=== PATIENT | male | born 1975 | race Caucasian/White ===

== ENCOUNTER 2019-01-04 12:35 | Inpatient (IN) | payer MEDICAID, OTHER ==
[~2019-01-04] VITALS: Ht 162.6 cm; Wt 76.0 kg
[2019-01-04 13:04] LABS: BASOPHILS % (AUTO) 0.9 % (0.0-2.0); EOSINOPHILS % (AUTO) 1.4 % (1.0-6.0); HEMATOCRIT 42.6 % (41-53); HEMOGLOBIN 14.5 g/dL (13.5-17.5); LYMPHOCYTES # (AUTO) 3.3 K/uL (1.0-4.8); LYMPHOCYTES % (AUTO) 38.1 % (22.0-44.0); MEAN CORPUSCULAR HEMOGLOBIN 31.2 pg (26.0-34.0); MEAN CORPUSCULAR HGB CONC 34.1 G/dL (31.0-37.0); MEAN CORPUSCULAR VOLUME 92 fL (80-100); MONOCYTES # (AUTO) 0.8 K/uL (0.1-1.0); MONOCYTES % (AUTO) 9.7 % (2.0-9.0); NEUTROPHILS # (AUTO) 4.3 K/uL (1.8-7.7); NEUTROPHILS % (AUTO) 49.9 % (40.0-70.0); PLATELET COUNT (AUTO) 217 K/uL (150-450); RED BLOOD CELL COUNT(AUTO) 4.65 MIL/uL (4.50-5.90); RED CELL DISTRIBUTION WIDTH 14.6 % (11.5-14.5)
[2019-01-04 13:12] LABS: ANION GAP 10 mmol/L (8-16); CALCIUM, TOTAL 9.6 mg/dL (8.8-10.5); CARBON DIOXIDE 26 mmol/L (22-29); CHLORIDE 100 mmol/L (98-107); CREATININE 1.12 mg/dL (0.60-1.30); GLOMERULAR FILTR. RATE CALC > 60 mL/min (>60); GLUCOSE,RANDOM 126 mg/dL (70-110); POTASSIUM 3.6 mmol/L (3.5-5.1); SODIUM SERUM 136 mmol/L (136-145); UREA NITROGEN, BLOOD 14 mg/dL (7-18)
[2019-01-04 13:18] LABS: ALANINE AMINOTRANSFERASE 103 U/L (12-78); ALBUMIN 4.4 g/dL (3.4-5.0); ALKALINE PHOSPHATASE 76 U/L (46-116); ASPARTATE AMINOTRANSFERASE 31 U/L (15-37); BILIRUBIN,TOTAL 0.4 mg/dL (0.1-1.0); TOTAL PROTEIN, SERUM 7.8 g/dL (6.4-8.2)
[2019-01-04] MEDS ORDERED: HALOPERIDOL 5 MG TABLET PO PRN (15:45)
[2019-01-04 16:11] LABS: AMPHET/METH SCREEN,URINE NEGATIVE (NEGATIVE); BARBITURATE SCREEN, URINE NEGATIVE (NEGATIVE); BENZODIAZEPINES SCREEN,URINE NEGATIVE (NEGATIVE); CANNABINOID SCREEN,URINE NEGATIVE (NEGATIVE); COCAINE SCREEN,URINE NEGATIVE (NEGATIVE); METHADONE SCREEN, URINE NEGATIVE (NEGATIVE); OPIATE SCREEN,URINE NEGATIVE (NEGATIVE)
[2019-01-04 16:13] LABS: PHENCYCLIDINE SCREEN,URINE NEGATIVE (NEGATIVE)
[2019-01-04 17:01] LABS: APPEARANCE,URINE CLEAR (CLEAR); BILIRUBIN,URINE NEGATIVE (NEGATIVE); GLUCOSE, URINE (UA) NEGATIVE (NEGATIVE); KETONES,URINE NEGATIVE (NEGATIVE); LEUKOCYTE ESTERASE ,URINE NEGATIVE (NEGATIVE); NITRATE,URINE NEGATIVE (NEGATIVE); OCCULT BLOOD,URINE NEGATIVE (NEGATIVE); PROTEIN,URINE NEGATIVE (NEGATIVE); UROBILINOGEN,URINE 0.2 mg/dL (<=1.0)
[2019-01-04] MEDS ORDERED: IBUPROFEN 400 MG TABLET PO PRN (21:15)
[2019-01-04] MEDS ORDERED: PETROLATUM,WHITE 28 GM JELLY TP PRN (21:15)
[2019-01-04] MEDS ORDERED: DOCUSATE SODIUM 100 MG CAPSULE PO PRN (21:15)
[2019-01-04] MEDS ORDERED: GuaiFENesin/D-METHORPHAN [SUGAR-FREE] 200-20MG/10 ML SYRUP UDCUP PO PRN (21:15)
[2019-01-04] MEDS ORDERED: ACETAMINOPHEN 325 MG TABLET PO PRN (21:15)
[2019-01-04] MEDS ORDERED: ONDANSETRON HCL 4 MG TABLET PO PRN (21:15)
[2019-01-04] MEDS ORDERED: MAGNESIUM HYDROXIDE SUSPENSION 30 ML UDCUP PO PRN (21:15)
[2019-01-04] MEDS ORDERED: LOPERAMIDE HCL 2 MG CAPSULE PO PRN (21:15)
[2019-01-04] MEDS ORDERED: CloNIDine HCL 0.1 MG TABLET PO PRN (21:15)
[2019-01-04] MEDS ORDERED: ALBUTEROL SULFATE HFA 90 MCG/PUFF 8 GM INHALER IH PRN (21:15)
[2019-01-04 21:23] VITALS: BP 123/84
[2019-01-04] MEDS: ACETAMINOPHEN 325 MG TABLET PO PRN (21:23)
[2019-01-04] MEDS: ZOLPIDEM TARTRATE 10 MG TABLET PO PRN (21:23)
[2019-01-05 06:59] LABS: BASOPHILS % (AUTO) 0.9 % (0.0-2.0); EOSINOPHILS % (AUTO) 2.6 % (1.0-6.0); HEMATOCRIT 40.2 % (41-53); HEMOGLOBIN 13.9 g/dL (13.5-17.5); LYMPHOCYTES # (AUTO) 2.6 K/uL (1.0-4.8); LYMPHOCYTES % (AUTO) 37.1 % (22.0-44.0); MEAN CORPUSCULAR HEMOGLOBIN 31.7 pg (26.0-34.0); MEAN CORPUSCULAR HGB CONC 34.6 G/dL (31.0-37.0); MEAN CORPUSCULAR VOLUME 92 fL (80-100); MONOCYTES # (AUTO) 0.7 K/uL (0.1-1.0); MONOCYTES % (AUTO) 10.4 % (2.0-9.0); NEUTROPHILS # (AUTO) 3.5 K/uL (1.8-7.7); PLATELET COUNT (AUTO) 200 K/uL (150-450); RED BLOOD CELL COUNT(AUTO) 4.38 MIL/uL (4.50-5.90); RED CELL DISTRIBUTION WIDTH 14.2 % (11.5-14.5)
[2019-01-05 07:35] LABS: ALANINE AMINOTRANSFERASE 83 U/L (12-78); ALBUMIN 3.9 g/dL (3.4-5.0); ALKALINE PHOSPHATASE 65 U/L (46-116); ANION GAP 11 mmol/L (8-16); ASPARTATE AMINOTRANSFERASE 27 U/L (15-37); BILIRUBIN,TOTAL 0.5 mg/dL (0.1-1.0); CALCIUM, TOTAL 9.4 mg/dL (8.8-10.5); CARBON DIOXIDE 27 mmol/L (22-29); CHLORIDE 103 mmol/L (98-107); CHOL/HDL RATIO 10.9 (4.2-7.3); CHOLESTEROL 272 mg/dL (131-200); CREATININE 1.02 mg/dL (0.60-1.30); GLOMERULAR FILTR. RATE CALC > 60 mL/min (>60); GLUCOSE,RANDOM 105 mg/dL (70-110); HDL CHOLESTEROL 25 mg/dL (40-60); SODIUM SERUM 141 mmol/L (136-145); THYROID STIMULATING HORMONE 0.81 uIU/mL (0.36-3.74); TOTAL PROTEIN, SERUM 6.8 g/dL (6.4-8.2); TRIGLYCERIDES 918 mg/dL (15-150); UREA NITROGEN, BLOOD 16 mg/dL (7-18)
[2019-01-05] MEDS: NICOTINE 14 MG/24 HOUR PATCH TD SCH (08:35)
[2019-01-05 09:35] VITALS: BP 133/90
[2019-01-05] MEDS: ACETAMINOPHEN 325 MG TABLET PO PRN (14:56)
[2019-01-05 14:59] VITALS: BP 137/83
[2019-01-05 16:00] VITALS: BP 115/82
[2019-01-05] MEDS: RisperiDONE 2 MG TABLET PO SCH (20:18)
[2019-01-05] MEDS: ZOLPIDEM TARTRATE 10 MG TABLET PO PRN (21:36)
[2019-01-06 08:00] VITALS: BP 122/75
[2019-01-06] MEDS: NICOTINE 14 MG/24 HOUR PATCH TD SCH (08:12)
[2019-01-06] MEDS: DULoxetine HCL 60 MG CAPSULE PO SCH (08:23)
[2019-01-06] MEDS: LORazepam 2 MG TABLET PO PRN ×2 (11:24→18:06)
[2019-01-06] MEDS: ACETAMINOPHEN 325 MG TABLET PO PRN (11:24)
[2019-01-06 17:42] VITALS: BP 122/68
[2019-01-06] MEDS: ZOLPIDEM TARTRATE 10 MG TABLET PO PRN (21:04)
[2019-01-06] MEDS: RisperiDONE 2 MG TABLET PO SCH (21:04)
[2019-01-07 08:55] VITALS: BP 124/68
[2019-01-07] MEDS: DULoxetine HCL 60 MG CAPSULE PO SCH (08:55)
[2019-01-07] MEDS: MAG HYDROX/AL HYDROX/SIMETH ES 30 ML SUSPENSION UDCUP PO PRN ×2 (08:56→15:52)
[2019-01-07] MEDS: LORazepam 2 MG TABLET PO PRN ×2 (08:56→15:30)
[2019-01-07] MEDS: IBUPROFEN 400 MG TABLET PO PRN (08:57)
[2019-01-07] MEDS: NICOTINE 14 MG/24 HOUR PATCH TD SCH (09:00)
[2019-01-07 15:31] VITALS: BP 124/88
[2019-01-07] MEDS: ACETAMINOPHEN 325 MG TABLET PO PRN (15:31)
[2019-01-07] MEDS: RisperiDONE 2 MG TABLET PO SCH (20:17)
[2019-01-07] MEDS: ZOLPIDEM TARTRATE 10 MG TABLET PO PRN (20:17)
[2019-01-08] MEDS: DULoxetine HCL 60 MG CAPSULE PO SCH (08:25)
[2019-01-08] MEDS: NICOTINE 14 MG/24 HOUR PATCH TD SCH (08:26)
[2019-01-08 09:00] VITALS: BP 127/79
[2019-01-08] MEDS: ACETAMINOPHEN 325 MG TABLET PO PRN (14:52)
[2019-01-08 14:54] VITALS: BP 117/76
[2019-01-08 16:41] VITALS: BP 123/82
[2019-01-08] MEDS: SIMVASTATIN 20 MG TABLET PO SCH (20:33)
[2019-01-08] MEDS: RisperiDONE 2 MG TABLET PO SCH (20:33)
[2019-01-09 08:10] VITALS: BP 139/79
[2019-01-09] MEDS: LORazepam 2 MG TABLET PO PRN (08:14)
[2019-01-09] MEDS: ACETAMINOPHEN 325 MG TABLET PO PRN (08:14)
[2019-01-09] MEDS: DULoxetine HCL 60 MG CAPSULE PO SCH (08:14)
[2019-01-09] MEDS: NICOTINE 14 MG/24 HOUR PATCH TD SCH (09:00)
[2019-01-09] MEDS: MAG HYDROX/AL HYDROX/SIMETH ES 30 ML SUSPENSION UDCUP PO PRN (16:06)
[2019-01-09 17:00] VITALS: BP 136/81
[2019-01-09] MEDS: SIMVASTATIN 20 MG TABLET PO SCH (20:26)
[2019-01-09] MEDS: RisperiDONE 2 MG TABLET PO SCH (20:27)
[2019-01-10 08:00] VITALS: BP 114/55
[2019-01-10] MEDS: NICOTINE 14 MG/24 HOUR PATCH TD SCH (08:21)
[2019-01-10] MEDS: DULoxetine HCL 60 MG CAPSULE PO SCH (08:21)
[2019-01-10] MEDS: ACETAMINOPHEN 325 MG TABLET PO PRN (08:25)
[2019-01-10] MEDS: LORazepam 2 MG TABLET PO PRN (16:12)
[2019-01-10 16:32] VITALS: BP 122/76
[2019-01-10] MEDS: RisperiDONE 2 MG TABLET PO SCH (21:08)
[2019-01-10] MEDS: ZOLPIDEM TARTRATE 10 MG TABLET PO PRN (21:08)
[2019-01-10] MEDS: SIMVASTATIN 20 MG TABLET PO SCH (21:08)
[2019-01-11 08:36] VITALS: BP 147/93
[2019-01-11] MEDS: ACETAMINOPHEN 325 MG TABLET PO PRN (08:37)
[2019-01-11] MEDS: DULoxetine HCL 60 MG CAPSULE PO SCH (08:38)
[2019-01-11] MEDS: NICOTINE 14 MG/24 HOUR PATCH TD SCH (08:39)
[2019-01-11] MEDS: LORazepam 2 MG TABLET PO PRN (11:11)
[2019-01-11 16:43] VITALS: BP 152/92
[2019-01-11] MEDS: SIMVASTATIN 20 MG TABLET PO SCH (20:03)
[2019-01-11] MEDS: RisperiDONE 2 MG TABLET PO SCH (20:03)
[2019-01-11] MEDS: ZOLPIDEM TARTRATE 10 MG TABLET PO PRN (20:39)
[2019-01-12 04:15] VITALS: BP 121/74
[2019-01-12] MEDS: OMEGA-3/DHA/EPA/FISH OIL 1,000 MG CAPSULE PO SCH (08:10)
[2019-01-12] MEDS: DULoxetine HCL 60 MG CAPSULE PO SCH (08:10)
[2019-01-12] MEDS: LORazepam 2 MG TABLET PO PRN ×2 (08:13→16:19)
[2019-01-12] MEDS: NICOTINE 14 MG/24 HOUR PATCH TD SCH (08:14)
[2019-01-12 09:13] VITALS: BP 120/84
[2019-01-12] MEDS: ACETAMINOPHEN 325 MG TABLET PO PRN (09:13)
[2019-01-12 11:20] VITALS: BP 132/91
[2019-01-12] MEDS: IBUPROFEN 400 MG TABLET PO PRN (11:23)
[2019-01-12 12:23] VITALS: BP 126/84
[2019-01-12 17:59] VITALS: BP 122/88
[2019-01-12] MEDS: RisperiDONE 2 MG TABLET PO SCH (20:20)
[2019-01-12] MEDS: SIMVASTATIN 20 MG TABLET PO SCH (20:21)
[2019-01-12] MEDS: ZOLPIDEM TARTRATE 10 MG TABLET PO PRN (20:21)
[2019-01-13] MEDS: NICOTINE 14 MG/24 HOUR PATCH TD SCH (08:15)
[2019-01-13] MEDS: DULoxetine HCL 60 MG CAPSULE PO SCH (08:15)
[2019-01-13] MEDS: OMEGA-3/DHA/EPA/FISH OIL 1,000 MG CAPSULE PO SCH (08:15)
[2019-01-13] MEDS: LORazepam 2 MG TABLET PO PRN ×2 (08:21→16:21)
[2019-01-13 09:30] VITALS: BP 132/87
[2019-01-13] MEDS: IBUPROFEN 400 MG TABLET PO PRN (09:46)
[2019-01-13 16:39] VITALS: BP 124/63
[2019-01-13] MEDS: SIMVASTATIN 20 MG TABLET PO SCH (20:19)
[2019-01-13] MEDS: RisperiDONE 2 MG TABLET PO SCH (20:19)
[2019-01-13 20:22] VITALS: BP 128/71
[2019-01-13] MEDS: ACETAMINOPHEN 325 MG TABLET PO PRN (20:22)
[2019-01-14] MEDS: OMEGA-3/DHA/EPA/FISH OIL 1,000 MG CAPSULE PO SCH (08:10)
[2019-01-14] MEDS: LORazepam 2 MG TABLET PO PRN (08:10)
[2019-01-14] MEDS: IBUPROFEN 400 MG TABLET PO PRN (08:10)
[2019-01-14] MEDS: DULoxetine HCL 60 MG CAPSULE PO SCH (08:10)
[2019-01-14] MEDS: NICOTINE 14 MG/24 HOUR PATCH TD SCH (08:11)
[2019-01-14 08:45] VITALS: BP 134/90
[2019-01-14] MEDS ORDERED: DiphenhydrAMINE HCL 50 MG/ML VIAL ONE (11:27)
[2019-01-14] MEDS ORDERED: LORazepam 2 MG/ML VIAL ONE (11:27)
[2019-01-14] MEDS ORDERED: HALOPERIDOL LACTATE 5 MG/ML VIAL ONE (11:27)
[2019-01-14] MEDS ORDERED: HALOPERIDOL LACTATE 5 MG/ML VIAL IM ONE (11:30)
[2019-01-14] MEDS ORDERED: DiphenhydrAMINE HCL 50 MG/ML VIAL IM ONE (11:30)
[2019-01-14] MEDS ORDERED: LORazepam 2 MG/ML VIAL IM ONE (11:30)
[2019-01-14 16:30] VITALS: BP 118/80
[2019-01-14] MEDS: RisperiDONE 2 MG TABLET PO SCH (20:40)
[2019-01-14] MEDS: SIMVASTATIN 20 MG TABLET PO SCH (20:40)
[2019-01-14 20:54] VITALS: BP 115/71
[2019-01-15] MEDS: DULoxetine HCL 60 MG CAPSULE PO SCH (08:28)
[2019-01-15] MEDS: NICOTINE 14 MG/24 HOUR PATCH TD SCH (08:28)
[2019-01-15] MEDS: LORazepam 2 MG TABLET PO PRN ×2 (08:28→16:20)
[2019-01-15] MEDS: OMEGA-3/DHA/EPA/FISH OIL 1,000 MG CAPSULE PO SCH (08:28)
[2019-01-15 10:15] VITALS: BP 145/80
[2019-01-15] MEDS ORDERED: RISP2 PO (12:37)
[2019-01-15] MEDS ORDERED: DULO60CA44 PO (12:37)
[2019-01-15] MEDS ORDERED: NICO-703 TD (12:38)
[2019-01-15] MEDS ORDERED: SIMV-260 PO (12:40)
[2019-01-15] MEDS ORDERED: OMEG-12 PO (12:40)
[2019-01-15 16:20] VITALS: BP 124/78
[2019-01-15] MEDS: IBUPROFEN 400 MG TABLET PO PRN (16:20)
[2019-01-15 16:54] VITALS: BP 124/78
== END 2019-01-15 18:45 | disposition home or self-care (01) | DRG 751 ==
LOC: EMS 12:39 → 3EX 19:34 → 3EI 01-06 16:32 → 3EX 01-07 09:38 → 3EI 01-09 09:32
DX: F33.2 Major depressive disorder, recurrent severe without psychotic features (principal); G35 Multiple sclerosis; E78.5 Hyperlipidemia, unspecified; R45.850 Homicidal ideations; F17.210 Nicotine dependence, cigarettes, uncomplicated; F63.81 Intermittent explosive disorder; Z79.899 Other long term (current) drug therapy
CPT/HCPCS: 83036; 84443; 97110; 97116; 97162; 97166; 97530; 97535; G0378; G0480; J1200; J1630; J2060; Q0162